=== PATIENT | female | born 1970 | race Caucasian/White ===

== ENCOUNTER 2020-07-26 17:04 | Emergency (ER) | payer OTHER ==
[~2020-07-26] VITALS: Ht 170.2 cm; Wt 79.4 kg
--- NOTE | 2020-07-26 17:13 | NUR ---
DR SETH AT BEDSIDE FOR EVAL.
[2020-07-26] MEDS ORDERED: ONDANSETRON HCL/PF 4 MG/2 ML VIAL ONE (17:19)
[2020-07-26] MEDS ORDERED: diphenhydrAMINE HCL 50 MG/ML VIAL ONE (17:19)
--- NOTE | 2020-07-26 17:28 | NUR ---
iv line started blood drawn and sent to lab.
[2020-07-26] MEDS ORDERED: ONDANSETRON 4 MG TAB.RAPDIS PO ONE (17:30)
[2020-07-26] MEDS: diphenhydrAMINE HCL 50 MG/ML VIAL IV ONE ×2 (17:30→17:45)
[2020-07-26 17:36] LABS: BASOPHILS # (AUTO) 0.1 /CMM (0.0-0.2); BASOPHILS % (AUTO) 1.1 % (0.0-2.0); EOSINOPHILS % (AUTO) 2.1 % (0.0-6.0); HEMATOCRIT 41 % (33-45); HEMOGLOBIN 13.9 g/dL (11.5-14.8); LYMPHOCYTES # (AUTO) 3.6 /CMM (0.8-4.8); LYMPHOCYTES % (AUTO) 35.6 % (20.0-44.0); MEAN CORPUSCULAR HGB CONC 34 g/dl (31.0-36.0); MEAN CORPUSCULAR VOLUME 92 fL (82-100); MONOCYTES # (AUTO) 0.6 /CMM (0.1-1.30); MONOCYTES % (AUTO) 5.9 % (2.0-12.0); NEUTROPHILS # (AUTO) 5.5 /CMM (1.8-8.9); NEUTROPHILS % (AUTO) 55.3 % (43.0-81.0); PLATELET COUNT (AUTO) 451 /CMM (150-450); RED BLOOD CELL COUNT(AUTO) 4.51 MIL/uL (4.0-5.2)
--- NOTE | 2020-07-26 17:49 | NUR ---
pt to radiology for head ct scan via [facility].
[2020-07-26 18:03] LABS: ALBUMIN 3.4 g/dL (3.4-5.0); BILIRUBIN,DIRECT 0.1 mg/dL (0.0-0.2); BILIRUBIN,TOTAL 0.2 mg/dL (0.2-1.0); CALCIUM, SERUM 9.7 mg/dL (8.5-10.1); CREATININE 0.9 mg/dL (0.6-1.3); POTASSIUM 4.2 mmol/L (3.5-5.1); TOTAL PROTEIN, SERUM 7.8 g/dL (6.4-8.2)
[2020-07-26] MEDS ORDERED: MECL-159 PO (18:18)
[2020-07-26 18:34] VITALS: BP 132/77
--- NOTE | 2020-07-26 18:34 | NUR ---
Patient discharged to home in stable condition. Written and verbal after care instructions given. Patient verbalizes understanding of instruction.IV removed. Catheter intact and site benign. Pressure and 4x4 applied to site. No bleeding noted.
== END 2020-07-26 18:34 | disposition home or self-care (01) ==
LOC: ER 17:14
DX: R42 Dizziness and giddiness (principal); Z88.1 Allergy status to other antibiotic agents
CPT/HCPCS: 36415; 70450; 80048; 80076; 85025; 93005; 96374; 96375; 99285; J1200; J2405

== ENCOUNTER 2020-12-09 20:10 | Inpatient (IN) | payer OTHER ==
[~2020-12-09] VITALS: Ht 170.2 cm; Wt 81.6 kg
[~2020-12-09 20:10] MED LIST: MECL-159 PO
--- NOTE | 2020-12-09 20:15 | NUR ---
pt bibself c/o epigastric pain. Pt aaox4 breathing evenly and unlabored. Pt states "i think its my gallbladder, the pain is so bad". Pt attached to monitor and pox. MD at bedside. Pt denies pain radiating anywhere. Left ac 20g initated, blood obtained and sent to lab. SKin is warm and dry. Pt given blanket and call light within reach
--- NOTE | 2020-12-09 20:40 | NUR ---
xray at bedside
[2020-12-09] MEDS ORDERED: MORPHINE SULFATE INJ 4 MG/ML DISP.SYRIN ONE (20:44)
[2020-12-09] MEDS ORDERED: ONDANSETRON HCL/PF 4 MG/2 ML VIAL ONE (20:44)
--- NOTE | 2020-12-09 20:45 | NUR ---
us at bedside
[2020-12-09] MEDS ORDERED: ONDANSETRON HCL/PF 4 MG/2 ML VIAL IVP ONE (21:00)
[2020-12-09] MEDS ORDERED: IV NS 0.9% 1,000 ML BAG IV ONE (21:00)
[2020-12-09] MEDS ORDERED: MORPHINE SULFATE INJ 2 MG/ML DISP.SYRIN IV ONE (21:00)
--- NOTE | 2020-12-09 21:30 | NUR ---
Patient is resting comfortably in bed with eyes closed. Easily aroused. VSS
[2020-12-09 21:38] LABS: BASOPHILS # (AUTO) 0.1 K/uL (0.0-0.2); BASOPHILS % (AUTO) 0.3 % (0.0-2.0); HEMATOCRIT 43 % (33-45); HEMOGLOBIN 14.3 g/dL (11.5-14.8); LYMPHOCYTES % (AUTO) 4.3 % (20.0-44.0); MEAN CORPUSCULAR HGB CONC 33 g/dl (31.0-36.0); MEAN CORPUSCULAR VOLUME 92 fL (82-100); MONOCYTES # (AUTO) 0.9 K/uL (0.1-1.30); MONOCYTES % (AUTO) 3.8 % (2.0-12.0); NEUTROPHILS % (AUTO) 91.6 % (43.0-81.0); PLATELET COUNT (AUTO) 477 K/uL (150-450); RED BLOOD CELL COUNT(AUTO) 4.65 MIL/uL (4.0-5.2); WHITE BLOOD COUNT (AUTO) 22.9 K/uL (4.3-11.0)
[2020-12-09 21:48] LABS: BAND % (MANUAL) 12 % (0.0-5.0); LYMPHOCYTES % (MANUAL) 2 % (16-48); MONOCYTES % (MANUAL) 5 % (0-11.0); NEUTROPHILS % (MANUAL) 81 (42-76)
[2020-12-09 21:59] LABS: CALCIUM, SERUM 9.6 mg/dL (8.5-10.1); CARBON DIOXIDE 25 mmol/L (21-32); CHLORIDE 101 mmol/L (98-107); CREATININE 1.1 mg/dL (0.6-1.3); GLUCOSE 107 mg/dL (74-106); POTASSIUM 3.7 mmol/L (3.5-5.1); SODIUM SERUM 136 mmol/L (136-145); UREA NITROGEN, BLOOD 12 mg/dL (7-18)
[2020-12-09 22:03] LABS: ALANINE AMINOTRANSFERASE 353 U/L (12-78); ALBUMIN 3.9 g/dL (3.4-5.0); ALKALINE PHOSPHATASE 220 U/L (46-116); ASPARTATE AMINOTRANSFERASE 360 U/L (15-37); BILIRUBIN,DIRECT 0.7 mg/dL (0.0-0.2); BILIRUBIN,TOTAL 1.2 mg/dL (0.2-1.0); TOTAL PROTEIN, SERUM 8.4 g/dL (6.4-8.2)
[2020-12-09 22:32] LABS: BILIRUBIN,URINE SMALL (NEGATIVE); COLOR,URINE AMBER (YELLOW); LEUKOCYTE ESTERASE ,URINE NEGATIVE (NEGATIVE); NITRITE, URINE NEGATIVE (NEGATIVE); PH,URINE 5.5 (5.0-8.0); PROTEIN,URINE NEGATIVE (NEGATIVE); UGLUCOSE NEGATIVE (NEGATIVE); UROBILINOGEN,URINE 0.2 EU/dL (0.2)
[2020-12-09 22:39] LABS: LIPASE 14882 U/L (73-393)
--- NOTE | 2020-12-09 22:40 | NUR ---
pt sitting quietly, vss
[2020-12-09] MEDS ORDERED: PIPERACILLIN /TAZOBACTAM 3.375 G in IV D5W 50 ML IV ONE (23:00)
[2020-12-09] MEDS ORDERED: PIPERACILLIN /TAZOBACTAM 3.375 G VIAL IV ONE (23:11)
[2020-12-09 23:19] LABS: BACTERIA,URINE None seen /HPF (None Seen); SQUAMOUS EPITHELIAL CELL,UR Rare /HPF (None Seen); WBC,URINE 0-2 /HPF (0-3)
--- NOTE | 2020-12-09 23:36 | NUR ---
pt attached to monitor and pox. vss
[2020-12-10] MEDS ORDERED: IV 1/2NS 1000 ML 1,000 ML IV PRN
[2020-12-10] MEDS ORDERED: MAGNESIUM HYDROXIDE 30 ML UDC PO PRN ×2 (01:30)
[2020-12-10] MEDS ORDERED: ZOLPIDEM TARTRATE 5 MG TABLET PO PRN ×2 (01:30)
[2020-12-10] MEDS ORDERED: MORPHINE SULFATE INJ 2 MG/ML DISP.SYRIN IV PRN (01:30)
[2020-12-10] MEDS ORDERED: MAG HYDROX/AL HYDROX/SIMETH 30 ML UDC PO PRN ×2 (01:30)
[2020-12-10] MEDS ORDERED: IV D5/0.45 NACL 1,000 ML IV PRN (01:30)
[2020-12-10] MEDS ORDERED: Z GUARD REMEDY 2 OZ OINT TP PRN ×2 (01:30)
[2020-12-10] MEDS ORDERED: ONDANSETRON HCL/PF 4 MG/2 ML VIAL IVP PRN (01:30)
[2020-12-10] MEDS ORDERED: ACETAMINOPHEN 325 MG TABLET PO PRN (01:30)
[2020-12-10] MEDS ORDERED: ACETAMINOPHEN 325 MG TABLET ONE (01:48)
[2020-12-10] MEDS: ACETAMINOPHEN 325 MG TABLET PO PRN (01:49)
--- NOTE | 2020-12-10 02:36 | NUR ---
pt sleeping, easily arousable
[2020-12-10] MEDS ORDERED: MORPHINE SULFATE INJ 2 MG/ML DISP.SYRIN ONE (03:29)
[2020-12-10] MEDS ORDERED: ONDANSETRON HCL/PF 4 MG/2 ML VIAL ONE (04:24)
[2020-12-10] MEDS: ONDANSETRON HCL/PF 4 MG/2 ML VIAL IVP PRN ×2 (04:26→19:59)
[2020-12-10 05:01] LABS: BASOPHILS % (AUTO) 0.1 % (0.0-2.0); HEMATOCRIT 40 % (33-45); HEMOGLOBIN 13.3 g/dL (11.5-14.8); LYMPHOCYTES # (AUTO) 1.6 K/uL (0.8-4.8); LYMPHOCYTES % (AUTO) 6.2 % (20.0-44.0); MEAN CORPUSCULAR HGB CONC 33 g/dl (31.0-36.0); MEAN CORPUSCULAR VOLUME 92 fL (82-100); MONOCYTES # (AUTO) 0.7 K/uL (0.1-1.30); MONOCYTES % (AUTO) 2.8 % (2.0-12.0); NEUTROPHILS # (AUTO) 23.6 K/uL (1.8-8.9); NEUTROPHILS % (AUTO) 90.9 % (43.0-81.0); PLATELET COUNT (AUTO) 486 K/uL (150-450); RED BLOOD CELL COUNT(AUTO) 4.37 MIL/uL (4.0-5.2)
[2020-12-10] MEDS ORDERED: ZOSYN IVPB 3.375 G in IV D5W 50ml IV ONE (05:30)
[2020-12-10 05:34] LABS: ALBUMIN 3.1 g/dL (3.4-5.0); BILIRUBIN,DIRECT 0.6 mg/dL (0.0-0.2); BILIRUBIN,TOTAL 1.2 mg/dL (0.2-1.0); CALCIUM, SERUM 8.7 mg/dL (8.5-10.1); CREATININE 0.9 mg/dL (0.6-1.3); MAGNESIUM 2.3 mg/dL (1.8-2.4); PHOSPHORUS 3.3 mg/dL (2.5-4.9); POTASSIUM 4.2 mmol/L (3.5-5.1); TOTAL PROTEIN, SERUM 7.2 g/dL (6.4-8.2)
[2020-12-10 05:41] LABS: BAND % (MANUAL) 21 % (0.0-5.0); BASOPHILS % (MANUAL) 0 % (0.0-2.0); EOSINOPHILS % (MANUAL) 0 % (0-4); LYMPHOCYTES % (MANUAL) 6 % (16-48); MONOCYTES % (MANUAL) 3 % (0-11.0); NEUTROPHILS % (MANUAL) 70 (42-76)
[2020-12-10] MEDS ORDERED: PIPERACILLIN /TAZOBACTAM 3.375 G VIAL IV ONE (06:10)
[2020-12-10] MEDS ORDERED: ENOXAPARIN SODIUM 40 MG/0.4 ML DISP.SYRIN SQ ONE (06:13)
[2020-12-10] MEDS: ENOXAPARIN SODIUM 40 MG/0.4 ML DISP.SYRIN SQ SCH ×2 (06:30→21:05)
--- NOTE | 2020-12-10 07:30 | NUR ---
ASSESSED PT ON BED ASLEEP EASILY AROUSABLE, NOT IN RESPIRATORY DISTRESS, V/S STABLE, KEPT RESTED AND COMFORTABLE. WILL CONTINUE TO MONITOR.
[2020-12-10] MEDS ORDERED: LEVO150T PO (07:47)
[2020-12-10] MEDS ORDERED: DEXT30TA10 PO (07:47)
[2020-12-10] MEDS ORDERED: BUPR-319 PO (07:47)
--- NOTE | 2020-12-10 07:50 | NUR ---
ROOM GIVEN [id number]
[2020-12-10 08:00] VITALS: BP 91/52
--- NOTE | 2020-12-10 08:06 | NUR ---
REPORT GIVEN TO ZORAIDA CHRISTIANSON FOR CAL. WITH ONGOING IVF TRANSFUSING WELL.
[2020-12-10] MEDS ORDERED: MAG HYDROX/AL HYDROX/SIMETH 30 ML UDC ONE (08:24)
[2020-12-10 08:40] VITALS: BP 91/52
[2020-12-10] MEDS ORDERED: LORAZEPAM INJ 2 MG/ML VIAL IV PRN (09:00)
[2020-12-10] MEDS ORDERED: SUMATRIPTAN SUCCINATE 25 MG TABLET PO PRN (09:00)
[2020-12-10] MEDS: PIPERACILLIN /TAZOBACTAM 3.375 G in IV D5W 100 ML IV SCH ×2 (13:22→21:30)
[2020-12-10] MEDS ORDERED: KETOROLAC TROMETHAMINE INJ 30 MG/ML VIAL IV PRN (15:30)
[2020-12-10 16:00] VITALS: BP 114/68
[2020-12-10] MEDS: HYDROMORPHONE 1 MG/1 ML DISP.SYRIN IV PRN ×2 (16:47→21:02)
[2020-12-10] MEDS: BUPROPION XL 150 MG TAB.ER.24 PO SCH (18:09)
[2020-12-10] MEDS: IV D5/0.45 NACL 1,000 ML IV PRN (18:12)
--- NOTE | 2020-12-10 19:12 | NUR ---
RN OPENING NOTES PT AWAKE IN BED, A/OX4, ABLE TO VERBALIZE ALL NEEDS. NO C/O PAIN OR DISCOMFORT AT THIS TIME. BREATHING EVEN AND UNLABORED, ON ROOM AIR. IV ACCESS ON L-AC INTACT, PATENT, AND FLUSHES WELL. PT ABLE TO AMBULATE TO BR WITH STEADY GAIT. NO ACUTE DISTRESS NOTED. SAFETY MEASURES IN PLACE, BED IN LOWEST LOCKED POSITION, S/R UP X2, CALL LIGHT/TABLE WITHIN EASY REACH. WILL CONTINUE TO MONITOR.
[2020-12-10 20:00] VITALS: BP 100/53
[2020-12-11] MEDS: ACETAMINOPHEN 325 MG TABLET PO PRN ×2 (01:06→16:46)
[2020-12-11] MEDS: PIPERACILLIN /TAZOBACTAM 3.375 G in IV D5W 100 ML IV SCH ×3 (04:59→21:30)
[2020-12-11] MEDS: ONDANSETRON HCL/PF 4 MG/2 ML VIAL IVP PRN ×3 (05:26→21:31)
[2020-12-11] MEDS ORDERED: SUMATRIPTAN SUCCINATE 25 MG TABLET PO PRN (05:30)
[2020-12-11] MEDS ORDERED: SUMATRIPTAN SUCCINATE 25 MG TABLET ONE (05:46)
--- NOTE | 2020-12-11 05:50 | NUR ---
RN NOTES PT REQUESTED FOR HER MED IMITREX FOR MIGRAINE HEADACHES. IMITREX WAS NOT IN OMNICELL NOR PT'S CASSETTE. CALLED TO PHARMACY AND SAID TO OBTAIN MED IN E.D AT THIS TIME. SHE WILL ALSO LEAVE A NOTE FOR IN-HOUSE PHARMACY TO STOCK THIS MED. OBTAINED MED FROM ER AND GIVEN TO PT ORDERED.
[2020-12-11] MEDS: IV D5/0.45 NACL 1,000 ML IV PRN (06:01)
[2020-12-11 06:40] LABS: BASOPHILS # (AUTO) 0.1 K/uL (0.0-0.2); BASOPHILS % (AUTO) 0.5 % (0.0-2.0); HEMATOCRIT 37 % (33-45); LYMPHOCYTES # (AUTO) 3.3 K/uL (0.8-4.8); LYMPHOCYTES % (AUTO) 23.2 % (20.0-44.0); MEAN CORPUSCULAR HGB CONC 33 g/dl (31.0-36.0); MEAN CORPUSCULAR VOLUME 92 fL (82-100); MONOCYTES # (AUTO) 0.7 K/uL (0.1-1.30); MONOCYTES % (AUTO) 4.8 % (2.0-12.0); NEUTROPHILS % (AUTO) 70.5 % (43.0-81.0); PLATELET COUNT (AUTO) 427 K/uL (150-450); RED BLOOD CELL COUNT(AUTO) 3.95 MIL/uL (4.0-5.2); WHITE BLOOD COUNT (AUTO) 14.2 K/uL (4.3-11.0)
--- NOTE | 2020-12-11 07:07 | NUR ---
RN CLOSING NOTES PT RESTING IN BED, EASILY AROUSABLE TO STIMULI, A/OX4. NO C/O PAIN OR DISCOMFORT AT THIS TIME. RESPIRATIONS EVEN AND UNLABORED, ON ROOM AIR. AMBULATES TO BR NEEDED, WITH STEADY GAIT. NO ACUTE DISTRESS NOTED. ALL NEEDS ATTENDED TO. SAFETY MEASURES MAINTAINED, BED IN LOWEST LOCKED POSITION, S/R UP X2, CALL LIGHT WITHIN REACH.
[2020-12-11 07:12] LABS: CALCIUM, SERUM 9.3 mg/dL (8.5-10.1); CREATININE 0.9 mg/dL (0.6-1.3); MAGNESIUM 2.5 mg/dL (1.8-2.4); PHOSPHORUS 2.7 mg/dL (2.5-4.9); POTASSIUM 4.1 mmol/L (3.5-5.1)
[2020-12-11] MEDS: LEVOTHYROXINE SODIUM 50 MCG TABLET PO SCH (07:29)
[2020-12-11 07:33] LABS: THYROID STIMULATING HORMONE 0.792 uIU/mL (0.358-3.74)
--- NOTE | 2020-12-11 07:52 | NUR ---
RN OPENING NOTES RECEIVED PT IN BED, AWAKE, A/OX4, ABLE TO VERBALIZE ALL NEEDS. NO C/O PAIN OR DISCOMFORT AT THIS TIME. BREATHING EVEN AND UNLABORED, ON ROOM AIR. IV ACCESS ON L-AC INTACT, PATENT, ONGOING IVF OF D5 1/2 NS X 125 CC/HR INFUSING WELL. PT ABLE TO AMBULATE TO BR WITH STEADY GAIT. NO ACUTE DISTRESS NOTED. SAFETY MEASURES IN PLACE, BED IN LOWEST LOCKED POSITION, S/R UP X2, CALL LIGHT/TABLE WITHIN EASY REACH. WILL CONTINUE TO MONITOR ACCORDINGLY.
[2020-12-11 08:00] VITALS: BP 108/69
[2020-12-11] MEDS: HYDROMORPHONE 1 MG/1 ML DISP.SYRIN IV PRN ×2 (11:23→21:31)
[2020-12-11] MEDS ORDERED: KETOROLAC TROMETHAMINE INJ 30 MG/ML VIAL IV ONE (14:30)
[2020-12-11 16:00] VITALS: BP 134/79
--- NOTE | 2020-12-11 18:00 | NUR ---
RN NOTES PATIENT REFUSED TO TAKE BRUPOPION. PER PATIENT SHE'S TAKING IT IN THE MORNING SINCE THE MEDICATION IS MAKING HER AWAKE WHEN TAKING IT.
[2020-12-11] MEDS: BUPROPION XL 150 MG TAB.ER.24 PO SCH (18:01)
--- NOTE | 2020-12-11 18:26 | NUR ---
MS RN CLOSING NOTES PT RESTING IN BED, EASILY AWAKEN BY VERBAL AND TACTILE STIMULI, NO C/O PAIN OR DISCOMFORT AT THIS TIME. RESPIRATIONS EVEN AND UNLABORED, ON ROOM AIR. AMBULATES TO BR NEEDED, WITH STEADY GAIT. NO ACUTE DISTRESS NOTED. ALL NEEDS ATTENDED AND MET. SAFETY MEASURES MAINTAINED, BED IN LOWEST LOCKED POSITION, S/R UP X2, CALL LIGHT WITHIN REACH. WILL ENDORSE TO ONCOMING SHIFT FOR CAL.
--- NOTE | 2020-12-11 19:40 | NUR ---
MS/RN OPENING NOTE RECEIVED PATIENT RESTING IN BED. AWAKE, ALERT AND ORIENTED X 4. ABLE TO MAKE NEEDS KNOWN. DENIES PAIN AT THIS TIME. CONTINUES ON ROOM AIR WITH NO S/SX OF RESPIRATORY DISTRESS NOTED. IV ACCESS TO LEFT AC #20G INTACT AND PATENT. CONTINUES ON IVF D5 1/2 NS @ 125ML/HR. CONTINUES ON IV ABX. CONTINUES ON CLEAR LIQUID DIET WITH NO S/SX OF NAUSEA OR VOMITING NOTED. CALL LIGHT WITHIN REACH. ASPIRATION, FALL AND SAFETY PRECAUTIONS MAINTAINED. WILL CONTINUE TO MONITOR.
[2020-12-11 20:00] VITALS: BP 106/70
[2020-12-11] MEDS: ENOXAPARIN SODIUM 40 MG/0.4 ML DISP.SYRIN SQ SCH (21:33)
[2020-12-12] MEDS: HYDROMORPHONE 1 MG/1 ML DISP.SYRIN IV PRN ×2 (01:47→06:02)
[2020-12-12] MEDS: PIPERACILLIN /TAZOBACTAM 3.375 G in IV D5W 100 ML IV SCH ×2 (05:00→12:14)
[2020-12-12 06:49] LABS: ALBUMIN 2.9 g/dL (3.4-5.0); BILIRUBIN,TOTAL 0.4 mg/dL (0.2-1.0); CALCIUM, SERUM 9.4 mg/dL (8.5-10.1); CREATININE 0.8 mg/dL (0.6-1.3); POTASSIUM 3.8 mmol/L (3.5-5.1); TOTAL PROTEIN, SERUM 7.5 g/dL (6.4-8.2)
[2020-12-12 06:51] LABS: BASOPHILS # (AUTO) 0.1 K/uL (0.0-0.2); BASOPHILS % (AUTO) 0.8 % (0.0-2.0); EOSINOPHILS % (AUTO) 2.7 % (0.0-6.0); HEMATOCRIT 36 % (33-45); HEMOGLOBIN 11.9 g/dL (11.5-14.8); LYMPHOCYTES % (AUTO) 42.1 % (20.0-44.0); MEAN CORPUSCULAR HGB CONC 33 g/dl (31.0-36.0); MEAN CORPUSCULAR VOLUME 92 fL (82-100); MONOCYTES # (AUTO) 0.8 K/uL (0.1-1.30); MONOCYTES % (AUTO) 8.2 % (2.0-12.0); NEUTROPHILS # (AUTO) 4.4 K/uL (1.8-8.9); NEUTROPHILS % (AUTO) 46.2 % (43.0-81.0); PLATELET COUNT (AUTO) 439 K/uL (150-450); RED BLOOD CELL COUNT(AUTO) 3.91 MIL/uL (4.0-5.2); WHITE BLOOD COUNT (AUTO) 9.6 K/uL (4.3-11.0)
[2020-12-12 08:00] VITALS: BP 122/73
[2020-12-12] MEDS: LEVOTHYROXINE SODIUM 50 MCG TABLET PO SCH (08:07)
[2020-12-12] MEDS ORDERED: BUPROPION XL 150 MG TAB.ER.24 PO SCH (09:00)
--- NOTE | 2020-12-12 18:25 | NUR ---
RN NOTE PT REQUESTED TO LEAVE AMA, IVS SAFELY REMOVED, AMA FORM SIGNED AND PT LEFT DOWNSTIARS BY FOOT
== END 2020-12-12 18:30 | disposition left against medical advice (07) | DRG 282 ==
LOC: ER 20:13 → TRANSITION 23:30 → MED 12-10 08:17
PROVIDERS: ADMIT Student in an Organized Health Care Education/Training Program; ATTEND Nurse Practitioner Acute Care
DX: K85.90 Acute pancreatitis without necrosis or infection, unspecified (principal); K76.0 Fatty (change of) liver, not elsewhere classified; E88.09 Other disorders of plasma-protein metabolism, not elsewhere classified; D72.829 Elevated white blood cell count, unspecified; E03.9 Hypothyroidism, unspecified; Z20.822 Contact with and (suspected) exposure to COVID-19; F32.9 Major depressive disorder, single episode, unspecified; E66.9 Obesity, unspecified; Z68.28 Body mass index [BMI] 28.0-28.9, adult; G43.909 Migraine, unspecified, not intractable, without status migrainosus; Z88.1 Allergy status to other antibiotic agents; Z79.899 Other long term (current) drug therapy; Z90.81 Acquired absence of spleen; K82.8 Other specified diseases of gallbladder; Z79.890 Hormone replacement therapy
CPT/HCPCS: 36415; 71045-TC; 76705-TC; 80048-TC; 80053-TC; 80061-TC; 80074; 80076-TC; 81001; 83605-TC; 83690-TC; 83735-TC; 84100-TC; 84443-TC; 84484-TC; 84703-TC; 85025-TC; 87040-TC; 87081-TC; 87806; G0378; J1170; J1650; J1885; J2270; J2405; J2543; J3490; J7030; J7060